=== PATIENT | male | born 1995 | race African-American/Black ===

== ENCOUNTER 2022-09-17 19:13 | Emergency (ER) | payer MEDICAID, OTHER ==
[~2022-09-17] VITALS: Ht 185.4 cm; Wt 73.0 kg
[2022-09-17] MEDS ORDERED: CYCL-837 PO (21:50)
[2022-09-17] MEDS ORDERED: IBUP-1456 PO (21:50)
[2022-09-17 21:55] VITALS: BP 126/58
== END 2022-09-17 21:59 | disposition home or self-care (01) ==
LOC: ER 19:16
DX: S39.012A Strain of muscle, fascia and tendon of lower back, initial encounter (principal); S50.811A Abrasion of right forearm, initial encounter; V43.54XA Car driver injured in collision with van in traffic accident, initial encounter; Y93.89 Activity, other specified; Y92.488 Other paved roadways as the place of occurrence of the external cause; Y99.8 Other external cause status